=== PATIENT | male | born 1975 | race Caucasian/White ===

== ENCOUNTER 2023-04-25 08:21 | Day surgery (SDC) | payer MEDICAID ==
[~2023-04-25] VITALS: Ht 165.1 cm; Wt 81.6 kg
[2023-04-25] MEDS ORDERED: SIMETHICONE 40 MG/0.6 ML ML ONE (08:46)
[2023-04-25] MEDS: MIDAZOLAM HCL 5 MG/5 ML VIAL ONE ×3 (08:50→08:54)
[2023-04-25] MEDS: MEPERIDINE 100 MG INJ. 100 MG/ML VIAL ONE ×2 (08:50→08:59)
[2023-04-25 14:58] VITALS: TEMP 98.2; O2SAT 99
[2023-04-25 15:28] VITALS: BP_SYST 113; PULSE 65; RESP 12
== END 2023-04-25 10:10 | disposition home or self-care (01) ==
LOC: SDS 08:21 → SMU 08:22 → SDS 10:10
PROVIDERS: ATTEND Internal Medicine
DX: Z12.11 Encounter for screening for malignant neoplasm of colon (principal); D12.3 Benign neoplasm of transverse colon; K57.30 Diverticulosis of large intestine without perforation or abscess without bleeding; K64.8 Other hemorrhoids; F41.9 Anxiety disorder, unspecified; Z87.891 Personal history of nicotine dependence; Z79.899 Other long term (current) drug therapy
CPT/HCPCS: 45380; 45385; 99152; 88305; 99153; G0378; J2250; J2175; 45384